=== PATIENT | male | born 2000 | race Caucasian/White ===

== ENCOUNTER 2018-12-31 18:11 | Emergency (ER) | payer OTHER ==
[~2018-12-31] VITALS: Ht 182.9 cm; Wt 83.6 kg
[2018-12-31 18:12] VITALS: BP 143/75
[2018-12-31] MEDS ORDERED: IBUP-1022 PO (19:32)
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
== END 2018-12-31 19:52 | disposition home or self-care (01) ==
LOC: M ED 18:11
DX: S90.02XA Contusion of left ankle, initial encounter (principal); V86.95XA Unspecified occupant of 3- or 4- wheeled all-terrain vehicle (ATV) injured in nontraffic accident, initial encounter; Y92.099 Unspecified place in other non-institutional residence as the place of occurrence of the external cause; Y93.9 Activity, unspecified; Y99.9 Unspecified external cause status; Z72.0 Tobacco use